=== PATIENT | female | born 1980 | race Caucasian/White ===

== ENCOUNTER 2018-03-18 08:35 | Emergency (ER) | payer MEDICAID ==
[2018-03-18 09:08] LABS: ADD MAN DIFF? NO
[2018-03-18 09:12] LABS: BASOPHILS % 0.7 % (0.0-2.0); EOSINOPHILS # 0.1 10^3/ul (0.0-0.5); EOSINOPHILS % 2.3 % (0.0-7.0); HEMATOCRIT 38.1 % (37.0-47.0); HEMOGLOBIN 12.5 g/dl (12.0-16.0); LYMPHOCYTES # 1.6 10^3/ul (0.8-2.9); LYMPHOCYTES % 28.2 % (15.0-51.0); MEAN CORPUSCULAR HEMOGLOBIN 29.8 pg (29.0-33.0); MEAN CORPUSCULAR HGB CONC 32.8 g/dl (32.0-37.0); MEAN CORPUSCULAR VOLUME 90.7 fl (82.0-101.0); MEAN PLATELET VOLUME 10.3 fl (7.4-10.4); MONOCYTE # 0.3 10^3/ul (0.3-0.9); NEUTROPHIL # 3.6 10^3/ul (1.6-7.5); NEUTROPHILS % 62.6 % (39.0-77.0); PLATELET COUNT 470 10^3/UL (140-415); RED CELL DISTRIBUTION WIDTH 13.1 % (11.5-14.5)
[2018-03-18 09:12] LABS: WHITE BLOOD COUNT 5.7 10^3/ul (4.8-10.8)
[2018-03-18 09:32] LABS: ANION GAP 15 (8-16); BLOOD UREA NITROGEN 10 mg/dl (7-20); CALCIUM 8.7 mg/dl (8.4-10.2); CARBON DIOXIDE 21 mmol/L (21-31); CHLORIDE 110 mmol/L (97-110); CREATININE 0.66 mg/dl (0.44-1.00); GLUCOSE 87 mg/dl (70-220); SODIUM 142 mmol/L (135-144)
[2018-03-18 09:51] LABS: TROPONIN-I < 0.012 ng/ml (0.000-0.120)
== END 2018-03-18 11:10 | disposition home or self-care (01) ==
LOC: E/R 08:35
DX: R07.9 Chest pain, unspecified (principal); D47.3 Essential (hemorrhagic) thrombocythemia; M25.512 Pain in left shoulder; R40.2142 Coma scale, eyes open, spontaneous, at arrival to emergency department; R40.2252 Coma scale, best verbal response, oriented, at arrival to emergency department; R40.2362 Coma scale, best motor response, obeys commands, at arrival to emergency department
CPT/HCPCS: 36415; 71045; 80048; 84484; 85025; 93005; 99285-25

== ENCOUNTER 2018-11-01 21:15 | Emergency (ER) | payer MEDICAID ==
[2018-11-01 22:20] LABS: ADD MAN DIFF? NO
[2018-11-01 22:24] LABS: WHITE BLOOD COUNT 10.8 10^3/ul (4.8-10.8)
[2018-11-01 22:24] LABS: BASOPHILS % 0.4 % (0.0-2.0); EOSINOPHILS # 0.1 10^3/ul (0.0-0.5); HEMATOCRIT 39.8 % (37.0-47.0); HEMOGLOBIN 13.2 g/dl (12.0-16.0); LYMPHOCYTES # 1.7 10^3/ul (0.8-2.9); LYMPHOCYTES % 15.5 % (15.0-51.0); MEAN CORPUSCULAR HEMOGLOBIN 29.6 pg (29.0-33.0); MEAN CORPUSCULAR HGB CONC 33.2 g/dl (32.0-37.0); MEAN CORPUSCULAR VOLUME 89.2 fl (82.0-101.0); MEAN PLATELET VOLUME 10.5 fl (7.4-10.4); MONOCYTE # 0.7 10^3/ul (0.3-0.9); MONOCYTES % 6.9 % (0.0-11.0); NEUTROPHIL # 8.2 10^3/ul (1.6-7.5); NEUTROPHILS % 75.6 % (39.0-77.0); PLATELET COUNT 473 10^3/UL (140-415); RED BLOOD COUNT 4.46 10^6/ul (4.20-5.40); RED CELL DISTRIBUTION WIDTH 13.4 % (11.5-14.5)
[2018-11-01 22:29] LABS: ADD UMIC YES; UR ASCORBIC ACID 20 mg/dL (NEGATIVE); UR BILIRUBIN (Dip) NEGATIVE (NEGATIVE); UR BLOOD (Dip) 3+ mg/dL (NEGATIVE); UR CLARITY CLOUDY (CLEAR); UR COLOR RED (YELLOW); UR GLUCOSE (Dip) NEGATIVE (NEGATIVE); UR KETONES (Dip) NEGATIVE (NEGATIVE); UR LEUKOCYTE ESTERASE (Dip) NEGATIVE Leu/ul (NEGATIVE); UR MUCUS FEW /HPF (NONE SEEN); UR NITRITE (Dip) NEGATIVE (NEGATIVE); UR RBC > 182 /HPF (0-5); UR SPECIFIC GRAVITY (Dip) 1.014 (1.003-1.030); UR SQUAMOUS EPITHELIAL CELL FEW /HPF (FEW); UR TOTAL PROTEIN (Dip) 2+ mg/dl (NEGATIVE); UR UROBILINOGEN (Dip) NEGATIVE (NEGATIVE); UR WBC 0 /HPF (0-5)
== END 2018-11-01 23:59 | disposition home or self-care (01) ==
LOC: FTE 21:15
DX: O20.0 Threatened abortion (principal); Z3A.09 9 weeks gestation of pregnancy
CPT/HCPCS: 36415; 76801; 81001; 84702; 85025; 86900; 86901; 99284-25

== ENCOUNTER 2018-11-06 00:31 | Emergency (ER) | payer MEDICAID ==
[2018-11-06 05:15] LABS: ADD MAN DIFF? NO
[2018-11-06 05:18] LABS: BASOPHILS % 0.5 % (0.0-2.0); EOSINOPHILS # 0.1 10^3/ul (0.0-0.5); EOSINOPHILS % 1.8 % (0.0-7.0); HEMATOCRIT 36.6 % (37.0-47.0); LYMPHOCYTES # 1.9 10^3/ul (0.8-2.9); LYMPHOCYTES % 24.3 % (15.0-51.0); MEAN CORPUSCULAR HEMOGLOBIN 29.4 pg (29.0-33.0); MEAN CORPUSCULAR HGB CONC 32.8 g/dl (32.0-37.0); MEAN CORPUSCULAR VOLUME 89.7 fl (82.0-101.0); MEAN PLATELET VOLUME 10.2 fl (7.4-10.4); MONOCYTE # 0.5 10^3/ul (0.3-0.9); MONOCYTES % 6.8 % (0.0-11.0); NEUTROPHIL # 5.3 10^3/ul (1.6-7.5); NEUTROPHILS % 66.2 % (39.0-77.0); PLATELET COUNT 435 10^3/UL (140-415); RED BLOOD COUNT 4.08 10^6/ul (4.20-5.40); RED CELL DISTRIBUTION WIDTH 13.3 % (11.5-14.5)
== END 2018-11-06 05:50 | disposition home or self-care (01) ==
LOC: FTE 05:50
DX: O41.8X11 Other specified disorders of amniotic fluid and membranes, first trimester, fetus 1 (principal); O46.8X1 Other antepartum hemorrhage, first trimester; R10.2 Pelvic and perineal pain; Z3A.10 10 weeks gestation of pregnancy
CPT/HCPCS: 76801; 76817; 84702; 85025; 99284-25

== ENCOUNTER 2019-05-21 08:42 | Inpatient (IN) | payer MEDICAID ==
[2019-05-21] MEDS: LACTATED RINGER'S 1,000 ML IV ×2 (10:05→14:01)
[2019-05-21] MEDS ORDERED: MISOPROSTOL 200 MCG TAB PR (10:30)
[2019-05-21] MEDS ORDERED: OXYTOCIN 30 UNITS/LR 500 ML IV (10:30)
[2019-05-21] MEDS ORDERED: CARBOPROST 250 MCG INJ IM (10:30)
[2019-05-21] MEDS: GENTAMICIN 80 MG/NS (PMX) 50 ML IVPB (10:30)
[2019-05-21] MEDS ORDERED: METHYLERGONOVINE 0.2 MG INJ IM (10:30)
[2019-05-21 11:03] LABS: ADD MAN DIFF? NO
[2019-05-21 11:07] LABS: BASOPHILS % 0.3 % (0.0-2.0); EOSINOPHILS # 0.1 10^3/ul (0.0-0.5); HEMATOCRIT 33.2 % (37.0-47.0); HEMOGLOBIN 10.3 g/dl (12.0-16.0); LYMPHOCYTES # 1.2 10^3/ul (0.8-2.9); LYMPHOCYTES % 19.6 % (15.0-51.0); MEAN CORPUSCULAR HEMOGLOBIN 27.3 pg (29.0-33.0); MEAN CORPUSCULAR VOLUME 88.1 fl (82.0-101.0); MEAN PLATELET VOLUME 12.7 fl (7.4-10.4); MONOCYTE # 0.6 10^3/ul (0.3-0.9); MONOCYTES % 9.6 % (0.0-11.0); NEUTROPHIL # 4.1 10^3/ul (1.6-7.5); NEUTROPHILS % 68.8 % (39.0-77.0); PLATELET COUNT 206 10^3/UL (140-415); RED BLOOD COUNT 3.77 10^6/ul (4.20-5.40); RED CELL DISTRIBUTION WIDTH 14.5 % (11.5-14.5)
[2019-05-21 11:07] LABS: WHITE BLOOD COUNT 5.9 10^3/ul (4.8-10.8)
[2019-05-21 11:35] LABS: PARTIAL THROMBOPLASTIN TIME 28.6 Sec (23.0-35.0)
[2019-05-21 11:39] LABS: PROTIME 12.3 Sec (11.9-14.9)
[2019-05-21 12:41] LABS: HEPATITIS B SURFACE ANTIGEN NEGATIVE (NEGATIVE)
[2019-05-21] MEDS ORDERED: morphine SULFATE/PF (10 MG/10 ML) INJ (16:19)
[2019-05-21] MEDS ORDERED: FENTAnyl 50 MCG/ML VIAL (16:19)
[2019-05-21] MEDS ORDERED: OXYTOCIN 10 UNIT INJ (16:32)
[2019-05-21] MEDS ORDERED: ONDANSETRON 4 MG INJ (16:32)
[2019-05-21] MEDS ORDERED: EPHEDrine 25 MG/5 ML SYG (16:37)
[2019-05-21] MEDS ORDERED: TRIMETHOBENZAMIDE 100 MG/ML VIAL IM (17:00)
[2019-05-21] MEDS ORDERED: ONDANSETRON 4 MG INJ IV (17:00)
[2019-05-21] MEDS ORDERED: NALOXONE (0.4 MG/ML) INJ IV (17:00)
[2019-05-21] MEDS ORDERED: NALBUPHINE HCL (10 MG/1 ML) INJ IV (17:00)
[2019-05-21] MEDS ORDERED: morphine 2 MG INJ IV (17:00)
[2019-05-21] MEDS: OXYTOCIN 30 UNITS/LR 500 ML IV ×2 (18:04→22:24)
[2019-05-21 18:25] LABS: RAPID PLASMA REAGIN NONREACTIVE (NR)
[2019-05-21] MEDS: DIPHENHYDRAMINE 50 MG INJ IV (19:49)
[2019-05-21] MEDS: morphine 2 MG INJ IV (19:49)
[2019-05-21] MEDS: CLINDAMYCIN 900 MG (PMX) 50 ML IVPB ×3 (21:55→21:56)
[2019-05-22] MEDS: LACTATED RINGER'S 1,000 ML IV ×3 (02:01→09:06)
[2019-05-22] MEDS: OXYTOCIN 30 UNITS/LR 500 ML IV ×2 (02:25→08:04)
[2019-05-22] MEDS: morphine 2 MG INJ IV (07:14)
[2019-05-22] MEDS ORDERED: MISOPROSTOL 200 MCG TAB PR (08:30)
[2019-05-22] MEDS ORDERED: CARBOPROST 250 MCG INJ IM (08:30)
[2019-05-22] MEDS ORDERED: OXYTOCIN 30 UNITS/LR 500 ML IV (08:30)
[2019-05-22] MEDS ORDERED: METHYLERGONOVINE 0.2 MG TAB PO (08:30)
[2019-05-22] MEDS ORDERED: METHYLERGONOVINE 0.2 MG INJ IM (08:30)
[2019-05-22] MEDS ORDERED: MAGNESIUM HYDROXIDE 30ML CUP PO (08:30)
[2019-05-22] MEDS: SENNA/DOCUSATE NA (8.6MG/50MG) TAB PO ×3 (09:00→22:11)
[2019-05-22] MEDS: DEXTROSE 5%-LR 1,000 ML IV ×2 (09:25→15:28)
[2019-05-22] MEDS: FERROUS SULFATE (EC) 325 MG TAB PO (09:53)
[2019-05-22 10:20] LABS: ADD MAN DIFF? NO
[2019-05-22 10:29] LABS: BASOPHILS % 0.2 % (0.0-2.0); EOSINOPHILS % 0.4 % (0.0-7.0); HEMATOCRIT 30.7 % (37.0-47.0); HEMOGLOBIN 9.6 g/dl (12.0-16.0); LYMPHOCYTES # 0.8 10^3/ul (0.8-2.9); LYMPHOCYTES % 9.3 % (15.0-51.0); MEAN CORPUSCULAR HEMOGLOBIN 27.3 pg (29.0-33.0); MEAN CORPUSCULAR HGB CONC 31.3 g/dl (32.0-37.0); MEAN CORPUSCULAR VOLUME 87.2 fl (82.0-101.0); MEAN PLATELET VOLUME 12.3 fl (7.4-10.4); MONOCYTE # 0.6 10^3/ul (0.3-0.9); MONOCYTES % 7.2 % (0.0-11.0); NEUTROPHIL # 6.7 10^3/ul (1.6-7.5); NEUTROPHILS % 82.4 % (39.0-77.0); PLATELET COUNT 184 10^3/UL (140-415); RED BLOOD COUNT 3.52 10^6/ul (4.20-5.40); RED CELL DISTRIBUTION WIDTH 14.5 % (11.5-14.5)
[2019-05-22 10:29] LABS: WHITE BLOOD COUNT 8.2 10^3/ul (4.8-10.8)
[2019-05-22] MEDS ORDERED: DIPHTH/TET/ACEL PERTUSS (ADULT) 0.5 ML VIAL IM* (11:00)
[2019-05-22] MEDS: ASCORBIC ACID 500 MG TAB PO (11:22)
[2019-05-22] MEDS: LANOLIN HPA 1 PKT TOP (12:20)
[2019-05-22] MEDS: HYDROCODONE/APAP (5/325) TAB NGT (15:03)
[2019-05-22] MEDS: IBUPROFEN 800 MG TAB PO (22:10)
[2019-05-22] MEDS: HYDROCODONE/APAP (5/325) TAB GTB (22:11)
[2019-05-23] MEDS: IBUPROFEN 800 MG TAB PO ×2 (05:44→17:43)
[2019-05-23] MEDS: HYDROCODONE/APAP (5/325) TAB GTB ×3 (05:44→17:46)
[2019-05-23] MEDS: SENNA/DOCUSATE NA (8.6MG/50MG) TAB PO ×2 (09:50→21:27)
[2019-05-23] MEDS: FERROUS SULFATE (EC) 325 MG TAB PO (09:50)
[2019-05-23] MEDS: ASCORBIC ACID 500 MG TAB PO (09:50)
[2019-05-24] MEDS: IBUPROFEN 800 MG TAB PO ×2 (02:31→08:54)
[2019-05-24] MEDS: HYDROCODONE/APAP (5/325) TAB GTB (02:31)
[2019-05-24] MEDS: SENNA/DOCUSATE NA (8.6MG/50MG) TAB PO (08:51)
[2019-05-24] MEDS: FERROUS SULFATE (EC) 325 MG TAB PO (08:51)
[2019-05-24] MEDS: ASCORBIC ACID 500 MG TAB PO (08:51)
[2019-05-24] MEDS: MEASLES,MUMPS,RUBELLA VACCINE INJ SC* (09:00)
[2019-05-24] MEDS: DIPHTH/TET/ACEL PERTUSS (ADULT) 0.5 ML VIAL IM* (12:21)
== END 2019-05-24 15:39 | disposition home or self-care (01) | DRG 784 ==
LOC: OBT 08:42 → L-D 08:42 → OBT 09:50 → L-D 09:50 → PP1 20:29
PROVIDERS: Obstetrics & Gynecology
PROC: 10D00Z1 Extraction of Products of Conception, Low, Open Approach (ICD-10-PCS; principal; 2019-05-21 14:30)
PROC: 0UB70ZZ Excision of Bilateral Fallopian Tubes, Open Approach (ICD-10-PCS; 2019-05-21 14:30)
DX: O34.211 Maternal care for low transverse scar from previous cesarean delivery (principal); D62 Acute posthemorrhagic anemia; O90.81 Anemia of the puerperium; I95.9 Hypotension, unspecified; Z3A.38 38 weeks gestation of pregnancy; Z37.0 Single live birth; Z30.2 Encounter for sterilization; Z23 Encounter for immunization
CPT/HCPCS: 85025; 85610; 85730; 86592; 86850; 86900; 86901; 87340; 88302; 90715; 93970; 99464